=== PATIENT | female | born 2000 | race Caucasian/White ===

== ENCOUNTER 2022-05-08 05:37 | Emergency (ER) | payer SELFPAY ==
[2022-05-08] VITALS (21 sets, daily range): BP systolic 105–136; BP diastolic 69–90; PULSE 94–136; RESP 14–24; TEMP 37.1; O2SAT 98–100
--- NOTE | ~2022-05-08 | CT_ITS ---
EXAMINATION: CT brain wo con INDICATION: Head injury COMPARISON: None TECHNIQUE: Standard unenhanced head CT. The dose-length product (DLP) was 605.33 mGy-cm. The mA was a djusted according to patient size. Iterative reconstruction technique was employed. FINDINGS: There is no intracranial hemorrhage, acute infarction, or abnormal mass lesion. The ventric les are normal. There is no abnormal mass effect or midline shift. The arizmendi-white matter differentiat ion is normal. The basal cisterns are patent. The orbits are normal. There is mild mucosal thickening of the paranasal sinuses. IMPRESSION: 1. No acute intracranial abnormality. Reviewed, dictated and finalized at location A.
--- NOTE | 2022-05-08 06:35 | PC.NURSE ---
patient resting in bed in no acute distress
--- NOTE | 2022-05-08 07:06 | ECG_ITS ---
Measurements Intervals [place] Rate: 111 P: 64 [place]: 126 QRS: 79 QRSD: 105 T: 44 QT: 350 QTc: 476 Interpretive Statements SINUS TACHYCARDIA INCOMPLETE RIGHT BUNDLE BRANCH BLOCK [90+ ms QRS DURATION, TERMINAL R IN V1/V2, 40+ ms S IN I/aVL/V4/V5/V6] ABNORMAL RHYTHM ECG NO PREVIOUS ECG AVAILABLE FOR COMPARISON Electronically Signed On 05-08-2022 9:04:12 CDT by Deisy Yepez M.D.
[2022-05-08] MEDS: LORazepam (*CRX) 0.5 MG TABLET PO (07:21)
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
--- NOTE | 2022-05-08 07:41 | PC.NURSE ---
SPOKE WITH YOLY AT [place] [employer]. YOLY SAYS HE IS GOING TO TALK TO HIS SERGEANT ABOUT SENDING AN OFFICER OUT TO INTERVIEW THE PT AND TAKE PICTURES OF HER WOUNDS.
--- NOTE | 2022-05-08 08:02 | PC.NURSE ---
PROPAGATION WORKER AT BEDSIDE
--- NOTE | 2022-05-08 08:40 | PC.NURSE ---
SPOKE WITH OFFICEAlma GABRIEL OF [place] [employer] AT PT BEDSIDE. WE WENT OVER CONTUSION ON HER HEAD AND BRUISING ON HER BACK. OFFICER HARVEY HAS TAKEN PHOTOGRAPHS OF INJURIES. THIS RN WAS NOT AWARE OF CONTUSION ON PT HEAD UNTIL OFFICER HARVEY POINTED IT OUT TO ME.
--- NOTE | 2022-05-08 08:42 | PC.NURSE ---
CONTUSION/HEMATOMA ON TOP OF PATIENT'S HAD PALPATED BY THIS RN. I WOULD ESTIMATE IT IS A LITTLE SMALLER THAN THE SIZE OF A BASEBALL. VERY TENDER TO PALPATION. OFFICER HARVEY FROM [place] [place] [employer] AT BEDSIDE.
[2022-05-08] MEDS: ACETAMINOPHEN 500 MG TABLET 1000 MG PO (09:07)
[2022-05-08] MEDS: LACTATED RINGERS 1,000 ML 999 ML IV CONT (09:07)
== END 2022-05-08 10:56 | disposition home or self-care (01) ==
PROVIDERS: Emergency Provider Emergency Medicine
DX: S06.0XAA Concussion with loss of consciousness status unknown, initial encounter (principal); F41.9 Anxiety disorder, unspecified; F14.90 Cocaine use, unspecified, uncomplicated; R00.0 Tachycardia, unspecified; I45.10 Unspecified right bundle-branch block; Y04.2XXA Assault by strike against or bumped into by another person, initial encounter
CPT/HCPCS: 70450; 93005; 96360; 99284; A9270; J7120